=== PATIENT | female | born 1945 | race Caucasian/White ===

== ENCOUNTER 2017-03-05 11:40 | Emergency (ER) | payer MEDICARE, OTHER ==
[~2017-03-05] VITALS: Ht 157.5 cm; Wt 84.4 kg
[~2017-03-05 11:40] MED LIST: AMLO5TAB2 PO; ASPI81TA50 PO; AZEL137S4 NAS; CALC1TAB3 PO; CALC200T56 PO; CYCL-259 PO; GABA-826 PO; GLIP5TAB10 PO; HYDR-3240 PO; HYDR12.58 PO; KRIL1CAP5 PO; METH750T2 PO; METO50TA82 PO; MULT-257 PO; OMEP-110 PO; QUIN40TA15 PO; ZOLP12.52 PO
[2017-03-05] MEDS ORDERED: SODIUM CHLORIDE 0.9% 1,000 ML IV ONE (12:19)
[2017-03-05] MEDS ORDERED: ACETAMINOPHEN 325 MG TABLET PO ONE (12:30)
[2017-03-05 12:50] LABS: RAPID INFLUENZA A POSITIVE (Negative); RAPID INFLUENZA B Negative (Negative)
[2017-03-05 13:01] LABS: ASPARTATE AMINO TRANSFERASE 33 U/L (15-37); BLOOD UREA NITROGEN 8 mg/dL (7-18)
[2017-03-05 13:16] LABS: HEMATOCRIT 43.7 % (34.6-47.8); WHITE BLOOD COUNT 6.1 x10^3/uL (3.4-10)
[2017-03-05 15:15] VITALS: BP 148/74
== END 2017-03-05 15:18 | disposition home or self-care (01) ==
LOC: ED 14:50
DX: J09.X2 Influenza due to identified novel influenza A virus with other respiratory manifestations (principal); J40 Bronchitis, not specified as acute or chronic; I10 Essential (primary) hypertension; E11.9 Type 2 diabetes mellitus without complications
CPT/HCPCS: 36415; 71020; 80053; 85025; 87400; 93005; 99285

== ENCOUNTER → 2020-03-25 | Outpatient (CLI) | payer MEDICARE ==
[~2020-03-25] MED LIST changes: +AMLO-150 PO; -AMLO5TAB2 PO; +CHOL10003 PO; +FLUT9.9S NAS; -HYDR12.58 PO; +HYDR25TA6 PO; +HYDROCHLOROTH12.5 MG PO; +LISI40TA PO; +METO200T47 PO; +ROSU40TA PO
[2020-03-25 13:10] LABS: ALBUMIN 3.9 g/dL (3.4-5.0); ANION GAP 7 mmol/L (5-15); CALCIUM 8.9 mg/dL (8.5-10.1); CHLORIDE 103 mmol/L (98-107)
[2020-03-25 13:15] LABS: ALANINE AMINOTRANSFERASE 41 U/L (12-78); ALKALINE PHOSPHATASE 118 U/L (45-117); BILIRUBIN,TOTAL 0.5 mg/dL (0.2-1.0); CREATININE 1.18 mg/dL (0.55-1.02); TOTAL PROTEIN 7.5 g/dL (6.4-8.2)
== END | disposition home or self-care (01) ==
LOC: STAR 11:14
PROVIDERS: ATTEND Orthopaedic Surgery
DX: Z01.812 Encounter for preprocedural laboratory examination (principal); Z20.828 Contact with and (suspected) exposure to other viral communicable diseases; I44.0 Atrioventricular block, first degree; M19.012 Primary osteoarthritis, left shoulder
CPT/HCPCS: 80053; 87081; 87635; 93005

== ENCOUNTER 2020-03-31 06:31 | Day surgery (SDC) | payer MEDICARE ==
[~2020-03-31] VITALS: Ht 157.5 cm; Wt 88.2 kg
[~2020-03-31 06:31] MED LIST changes: +BUPIVACAINE/PF 0.5% ONE; +CLINDAMYCIN 150 MG/ML, 6ML ONE; +HYDR-1067 PO; -HYDR-3240 PO
[2020-03-31] MEDS ORDERED: BUPIVACAINE LIPOSOME/PF 10ML INFIL ONE (06:41)
[2020-03-31 07:11] VITALS: BP 116/75
[2020-03-31] MEDS ORDERED: INSU100V8 SQ (07:16)
[2020-03-31] MEDS ORDERED: CEFD300C37 PO (07:17)
[2020-03-31] MEDS ORDERED: LACTATED RINGERS 1,000 ML IV SCH (07:30)
[2020-03-31] MEDS ORDERED: CHLORHEXIDINE 15 ML UDC MM ONE (07:30)
[2020-03-31] MEDS ORDERED: MIDAZOLAM 1 MG/ML, 2ML ONE (08:06)
[2020-03-31] MEDS ORDERED: FENTANYL PF 100 MCG/2ML ONE ×2 (08:06→10:59)
[2020-03-31] MEDS ORDERED: EPHEDRINE 50 MG/ML, 1ML ONE (08:44)
[2020-03-31] MEDS ORDERED: PHENYLEPHRINE 10 MG/ML ONE (08:44)
[2020-03-31] MEDS ORDERED: PROPOFOL 10 MG/ML, 50ML ONE (08:44)
[2020-03-31] MEDS ORDERED: DEXAMETHASONE 4 MG/ML, 1ML ONE (08:44)
[2020-03-31] MEDS ORDERED: ZOLPIDEM TARTRATE 10 MG PO PRN (09:00)
[2020-03-31] MEDS ORDERED: INSULIN GLARGINE HUM REC ANLOG 18 UNIT SQ SCH (09:00)
[2020-03-31] MEDS ORDERED: [UNRECOGNIZED DRUG - REMARK] NAS SCH (09:00)
[2020-03-31] MEDS ORDERED: HYDROCHLOROTHIAZIDE 25 MG TABLET PO SCH (09:00)
[2020-03-31] MEDS ORDERED: LISINOPRIL 40 MG TABLET PO SCH (09:00)
[2020-03-31] MEDS ORDERED: CEFDINIR 300 MG CAPSULE PO SCH (09:00)
[2020-03-31] MEDS ORDERED: ASPIRIN 81 MG TABLET EC PO SCH (09:00)
[2020-03-31] MEDS ORDERED: [UNRECOGNIZED DRUG - OTHER] PO SCH (09:00)
[2020-03-31] MEDS ORDERED: HYDROcodone/APAP 5/325 TABLET PO PRN (09:00)
[2020-03-31] MEDS ORDERED: MULTIVITAMIN 1 TABLET PO SCH (09:00)
[2020-03-31] MEDS ORDERED: VITAMIN D3 PO SCH (09:00)
[2020-03-31] MEDS ORDERED: CHOLECALCIFEROL 1,000 UNIT TABLET PO SCH (09:00)
[2020-03-31] MEDS ORDERED: CALCIUM CARBONATE PO SCH (09:00)
[2020-03-31] MEDS ORDERED: HYDROmorphone 1 MG/ML, 1ML INJ IVPush PRN (09:30)
[2020-03-31] MEDS ORDERED: hydrALAzine 20 MG/ML, 1ML IV PRN (09:30)
[2020-03-31] MEDS ORDERED: OXYcodone 5 MG/5 ML ORAL.SOL UDC PO PRN (09:30)
[2020-03-31] MEDS ORDERED: ALBUTEROL SULFATE 2.5 MG/3 ML NPPB PRN (09:30)
[2020-03-31] MEDS ORDERED: MEPERIDINE/PF 25MG/0.5ML IVPush PRN (09:30)
[2020-03-31] MEDS ORDERED: PROMETHAZINE 25 MG/ML, 1ML IVPush PRN (09:30)
[2020-03-31] MEDS ORDERED: ACETAMINOPHEN 325 MG TABLET PO PRN (09:30)
[2020-03-31] MEDS ORDERED: FENTANYL PF 100 MCG/2ML IV PRN (09:30)
[2020-03-31] MEDS ORDERED: LABETALOL 5MG/ML, 20ML IV PRN (09:30)
[2020-03-31] MEDS ORDERED: MIDAZOLAM 1 MG/ML, 2ML IV PRN (09:30)
[2020-03-31] MEDS ORDERED: LIDOCAINE-MPF 2% ,5ML ONE (09:35)
[2020-03-31] MEDS ORDERED: ROCURONIUM 10MG/ML,5ML ONE (09:36)
[2020-03-31] MEDS ORDERED: NEOSTIGMINE 1 MG/ML, 10ML ONE (09:36)
[2020-03-31] MEDS ORDERED: CEFAZOLIN 1,000 MG ONE (09:36)
[2020-03-31] MEDS ORDERED: PROPOFOL 10 MG/ML, 20ML ONE (09:36)
[2020-03-31] MEDS ORDERED: BUPIVACAINE/PF 0.5% ONE (09:36)
[2020-03-31] MEDS ORDERED: GLYCOPYRROLATE 0.2MG/1ML, 5ML ONE (09:36)
[2020-03-31] MEDS ORDERED: ONDANSETRON 2MG/ML, 2ML ONE (09:36)
[2020-03-31] MEDS ORDERED: OXYcodone 5 MG/5 ML ORAL.SOL UDC ONE (10:55)
[2020-03-31] MEDS ORDERED: MEPERIDINE/PF 25MG/ML,1ML ONE (10:56)
[2020-03-31] MEDS ORDERED: TEMPLATE NON-FORMULARY MED. (Metoprolol Succinate** 200 MG) PO SCH (21:00)
[2020-03-31] MEDS ORDERED: TEMPLATE NON-FORMULARY MED. (Rosuvastatin Calcium** (Crestor**) 40 MG) PO SCH (21:00)
[2020-03-31] MEDS ORDERED: CYCLOBENZAPRINE 10 MG TABLET PO SCH (21:00)
== END 2020-03-31 14:03 | disposition home or self-care (01) ==
LOC: OUT 06:31
PROVIDERS: ATTEND Orthopaedic Surgery
DX: M19.012 Primary osteoarthritis, left shoulder (principal); M65.812 Other synovitis and tenosynovitis, left shoulder; M25.712 Osteophyte, left shoulder; G89.18 Other acute postprocedural pain; E11.9 Type 2 diabetes mellitus without complications; I10 Essential (primary) hypertension; E78.5 Hyperlipidemia, unspecified; E66.9 Obesity, unspecified; Z79.82 Long term (current) use of aspirin; Z79.84 Long term (current) use of oral hypoglycemic drugs; Z79.891 Long term (current) use of opiate analgesic; Z79.899 Other long term (current) drug therapy; Z88.6 Allergy status to analgesic agent; Z98.890 Other specified postprocedural states; Z82.61 Family history of arthritis; Z82.49 Family history of ischemic heart disease and other diseases of the circulatory system
CPT/HCPCS: 23472; 64415; 82962; C1713; C1776; J0690; J1100; J2175; J2250; J2370; J2405; J2704; J2710; J3010; J7120